=== PATIENT | male | born 1970 | race Caucasian/White ===

== ENCOUNTER 2019-08-28 18:44 | Emergency (ER) | payer BC ==
[2019-08-28 19:29] VITALS: BP 130/77
--- NOTE | 2019-08-28 20:14 | UC ---
Eye Complaint HPI - HPI Summary HPI Summary: 49-year-old male comes in with a chief complaint of redness in his left eye. Patient noticed it this morning when he woke up. No known trauma to the eye no pain does not wear contacts. No change in vision. No drainage from the eye. No upper respiratory tract infection symptoms. - History of Current Complaint Chief Complaint: UCEye Stated Complaint: LEFT EYE COMPLAINT Time Seen by Provider: 08/28/19 20:01 Pain Intensity: 0 - Allergies/Home Medications Allergies/Adverse Reactions: Allergies Allergy/AdvReac Type Severity Reaction Status Date / Time shellfish derived Allergy Severe Swelling Verified 08/28/19 19:29 PMH/Surg Hx/FS Hx/Imm Hx Previously Healthy: Yes - Surgical History Surgical History: Yes Surgery Procedure, Year, and Place: lasik - Family History Known Family History: Positive: Non-Contributory - Social History Alcohol Use: Daily Alcohol Amount: 1 beer daily Substance Use Type: None Smoking Status (MU): Never Smoked Tobacco - Immunization History Most Recent Tetanus Shot: 2013 Review of Systems All Other Systems Reviewed And Are Negative: Yes Constitutional: Positive: Negative Skin: Positive: Negative Eyes: Positive: Eye Redness - SEE HPI ENT: Positive: Negative Respiratory: Positive: Negative Cardiovascular: Positive: Negative Gastrointestinal: Positive: Negative Motor: Positive: Negative Neurovascular: Positive: Negative Musculoskeletal: Positive: Negative Neurological: Positive: Negative Psychological: Positive: Negative Is Patient Immunocompromised?: No Physical Exam Triage Information Reviewed: Yes Appearance: Well-Appearing, No Pain Distress, Well-Nourished Vital Signs: Initial Vital Signs Temp 98.7 F 08/28/19 19:25 Pulse 58 08/28/19 19:25 Resp 15 08/28/19 19:25 BP 130/77 08/28/19 19:25 Pulse Ox 100 08/28/19 19:25 Vital Signs Reviewed: Yes Eyes: Positive: Other: - PERRLA EOMI. On the lateral aspect of the left eye there is a subtle conjunctival hemorrhage. Is no drainage. No foreign body appreciated. ENT: Negative: Nasal drainage Neck: Positive: Supple Respiratory: Positive: No respiratory distress Musculoskeletal: Positive: Strength Intact, ROM Intact Neurological: Positive: Alert, Muscle Tone Normal Psychological: Positive: Age Appropriate Behavior Skin Exam: Normal Eye Complaint Course/Dx - Course Course Of Treatment: We discussed the diagnosis and let the patient know that if he did start to have any pain or discharge or change in vision he needs to see ophthalmology right away. - Differential Dx/Diagnosis Provider Diagnosis: Subconjunctival hemorrhage of left eye Discharge ED - Sign-Out/Discharge Documenting (check all that apply): Patient Departure All imaging exams completed and their final reports reviewed: No Studies - Discharge Plan Condition: Stable Disposition: HOME Prescriptions: Tobramycin 0.3% OPHTH.RICHA* 1 drop LEFT EYE Q4H #1 btl Patient Education Materials: Subconjunctival Hemorrhage (ED) Referrals: Greg Anaya PA [Primary Care Provider] - Travis GALLEGOS,Nisha [Medical Doctor] - Fredy Davenport MD [Medical Doctor] - Additional Instructions: FOLLOW UP WITH OPHTHALMOLOGY. GET REEVALUATED SOONER IF NOT IMPROVING OR WORSE; PAIN, CHANGE IN VISION OR ANY QUESTIONS OR CONCERNS. - Billing Disposition and Condition Condition: STABLE Disposition: Home
== END 2019-08-28 20:21 | disposition home or self-care (01) ==
LOC: UCCORT 18:44
DX: H11.32 Conjunctival hemorrhage, left eye (principal); Z91.013 Allergy to seafood
CPT/HCPCS: 99202; G0463